=== PATIENT | female | born 2000 | race American Indian/Alaskan Native ===

== ENCOUNTER 2018-09-09 17:11 | Outpatient (CLI) | payer MEDICAID ==
[2018-09-09 17:38] VITALS: BP 126/82
[2018-09-09] MEDS ORDERED: LACTATED RINGERS 500 ML IV ONE (18:20)
--- NOTE | 2018-09-09 19:34 | Ultrasound Report ---
FINAL REPORT EXAM: US OB BPP WO NON-STRESS HISTORY: BPP, JONATHAN TECHNIQUE: Ultrasound biophysical profile PRIORS: None. FINDINGS: Single live intrauterine gestation is present with heart rate of 137 beats per minute Biophysical profile was performed respiratory motion 2 Body movement 2 tone 2 Amniotic fluid volume 2 Total 06/29 Impression Normal biophysical profile 06/29
--- NOTE | 2018-09-09 19:39 | Ultrasound Report ---
FINAL REPORT EXAM: US OB LIMITED HISTORY: BPP, JONATHAN TECHNIQUE: Ultrasound obstetrical limited PRIORS: None. FINDINGS: Single live intrauterine gestation present in cephalic presentation. cardiac activity present with heart rate of 137 beats per minute Amniotic fluid index 12.0 centimeters The placenta is posterior and fundal and grade 0 cardiac activity present with heart rate of 137 beats per minute IMPRESSION: Single intrauterine gestation in cephalic presentation
== END 2018-09-09 19:40 | disposition home or self-care (01) ==
LOC: TRG 17:11
PROVIDERS: ATTEND Obstetrics & Gynecology
DX: O47.02 False labor before 37 completed weeks of gestation, second trimester (principal); Z3A.27 27 weeks gestation of pregnancy; Z87.891 Personal history of nicotine dependence
CPT/HCPCS: 59025; 76815; 76819

== ENCOUNTER 2018-12-04 09:41 | Outpatient (CLI) | payer MEDICAID | END 2018-12-04 12:18 | disposition home or self-care (01) | LOC: TRG 09:41 | CPT/HCPCS: 59025 ==

== ENCOUNTER 2018-12-05 03:55 | Inpatient (IN) | payer MEDICAID ==
[2018-12-05] MEDS ORDERED: NITRATEST PAPER MC ONE (03:57)
--- NOTE | 2018-12-05 04:18 | History and Physical Report ---
History of Present Illness Date of examination: 12/05/18 Date of admission: 12/05/2018 Chief complaint: my water broke History of present illness: Pt c/o ROM at 0300 with light yellow color noted. Pt confirmed SROM with servicing manager. While in triage pt noted to have elevated BP. States she is just nervous. PIH labs done and will start magnesiums as blood pressures were in severe range. 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 of genital herpes: no Rash, Viral, or Febrile illness since last LMP? no Varicella/Chicken Pox Status: Previous Disease Genetic History Congenital Heart Defect: Mom: no Dad: no Lindsey Disease: Mom: no Dad: no Thalassemia Mom: no Dad: no Neural Tube Defect Mom: no Dad: no Down's Syndrome Mom: no Dad: no Scott-Sachs Mom: no Dad: no Sickle Cell Disease/Trait Mom: no Dad: no Hemophilia Mom: no Dad: no Muscular Dystrophy Mom: no Dad: no Cystic Fibrosis Mom: no Dad: no Jh Chorea Mom: no Dad: no Mental Retardation Mom: no Dad: no Fragile X Mom: no Dad: no Other Genetic/Chromosomal Disorder Mom: no Dad: no Child w/other defect Mom: no Dad: no Enviromental Exposures Xray Exposure: no Medication, drug, or alcohol use since LMP: no Chemical/Other Exposure: no Exposure to Cat Liter: no Hx of Parvovirus (Fifth Disease): no Occupational Exposure to Children: none Active Medications (reviewed today): GUMMIES () Current Allergies (reviewed today): AMOXICILLIN (AMOXICILLIN CAPS) (Critical) Past History - Obstetrical History Expected Date of Delivery: 12/06/18 Actual Gestation: 39 Week(s) 6 Day(s) : 1 Medications and Allergies Allergies Allergy/AdvReac Type Severity Reaction Status Date / Time amoxicillin Allergy Hives Verified 09/09/18 18:18 Home Medications Medication Instructions Recorded Confirmed Last Taken Type Pnv No.103/Folic/Om3s/Fish Oil 1 each PO QDAY 09/09/18 12/05/18 2 Months Ago History [ Gummies] ~10/05/18 - Vital Signs Vital signs: Vital Signs Pulse BP Pulse Ox 91 H 131/90 97 12/05/18 04:05 12/05/18 04:05 12/05/18 04:05 Temp Pulse Resp BP Pulse Ox 97.6 F 94 H 18 148/99 97 12/05/18 04:09 12/05/18 04:15 12/05/18 04:09 12/05/18 04:08 12/05/18 04:15 - Physical Exam Abdomen: Positive: normal appearance, soft, normal bowel sounds. Negative: distention, tenderness, guarding Genitourinary (Female): Positive: normal external genitalia, normal perenium Vagina: Positive: normal moisture Uterus: Positive: normal size - Obstetrical FHR: category 2 (decreased variability) Results All other labs normal. Assessment and Plan - Patient Problems (1) SROM (spontaneous rupture of membranes) Current Visit: Yes Status: Acute Plan to address problem: -admit -latent labor -augment with pitocin -GBS Negative -anticipate (2) 39 weeks gestation of Current Visit: Yes Status: Acute (3) Meconium in amniotic fluid Current Visit: Yes Status: Acute (4) Elevated blood pressure affecting in third trimester, antepartum Current Visit: Yes Status: Acute Plan to address problem: -start MgSO4 -PIH labs drawn
[2018-12-05] MEDS ORDERED: BRETHINE SUB-Q PRN (04:19)
[2018-12-05] MEDS ORDERED: XYLOCAINE 2% INFILTRATI ONE (04:19)
[2018-12-05] MEDS ORDERED: BRETHINE IVP PRN (04:19)
[2018-12-05] MEDS ORDERED: SUBLIMAZE IV PRN (04:19)
[2018-12-05] MEDS ORDERED: MINERAL OIL PO PRN (04:19)
[2018-12-05] MEDS ORDERED: MAGNESIUM SULFATE 4GM/100ML 4 GM/100 ML BAG IV ONE (04:56)
[2018-12-05] MEDS ORDERED: PITOCin/NS 30 UNIT/500ML 30 UNITS/500 ML BAG IV SCH ×2 (05:00)
[2018-12-05] MEDS ORDERED: PITOCin/NS 20 UNIT/1000ML DRIP 20 UNITS/1,000 ML BAG IV SCH (05:00)
[2018-12-05 05:01] LABS: Hematocrit 36.1 % (30.3-42.9); Hemoglobin 11.9 gm/dl (10.1-14.3); Mean Corpuscular HGB Conc 33 % (30-34); Mean Corpuscular Volume 85 fl (79-97); Platelet Count 280 K/mm3 (140-440); Red Blood Count 4.25 M/mm3 (3.65-5.03); Red Cell Distribution Width 14.3 % (13.2-15.2)
[2018-12-05] MEDS: LACTATED RINGERS 1,000 ML IV SCH ×2 (05:10→05:30)
--- NOTE | 2018-12-05 05:35 | Progress Note ---
Assessment and Plan - Patient Problems (1) SROM (spontaneous rupture of membranes) Current Visit: Yes Status: Acute (2) 39 weeks gestation of Current Visit: Yes Status: Acute (3) Meconium in amniotic fluid Current Visit: Yes Status: Acute Plan to address problem: -internal monitors placed -pitocin ordered but pt having spontaneous contractions (4) Elevated blood pressure affecting in third trimester, antepartum Current Visit: Yes Status: Acute Plan to address problem: -start MgSO4 -PIH labs drawn Subjective - Subjective Date of service: 12/05/18 Principal diagnosis: 39.6 weeks active labor, SROM, Mec,Elevated blood pressures Interval history: Pt c/o contraction pain. Bolus nearly completed for epidural. ISE and IUPC placed w/o difficulty at this time. CAT I tracing noted now with internal monitors noted. Patient reports: new complaints, movement normal, contractions Objective - Vital Signs Vital Signs: Vital Signs - 12hr 12/05/18 12/05/18 12/05/18 04:05 04:08 04:09 Temperature 97.6 F Pulse Rate 91 H 90 Respiratory 18 Rate Blood Pressure 131/90 148/99 O2 Sat by Pulse 97 Oximetry 12/05/18 12/05/18 12/05/18 04:10 04:15 04:28 Temperature Pulse Rate 109 H 94 H 82 Respiratory Rate Blood Pressure 158/101 O2 Sat by Pulse 97 97 Oximetry 12/05/18 12/05/18 12/05/18 04:41 05:10 05:25 Temperature Pulse Rate 77 81 85 Respiratory Rate Blood Pressure 165/95 147/89 145/108 O2 Sat by Pulse Oximetry - Exam FHR: category 1 Cervical Dilatation: 5 Cervical Effacement Percentage: 80 station: 0 Uterine Contraction Pattern: Regular Uterine Tone Measurement Phase: Resting Uterine Contraction Intensity: Moderate Extremities: normal Deep Tendon Reflex Grade: Normal +2 - Labs Labs: Laboratory Results - last 24 hr 12/05/18 04:30 WBC 6.1 RBC 4.25 Hgb 11.9 Hct 36.1 MCV 85 MCH 28 MCHC 33 RDW 14.3 Plt Count 280
[2018-12-05] MEDS ORDERED: NARCAN 2 MG/2 ML IV PRN (06:21)
[2018-12-05] MEDS: MAGNESIUM SULFATE 40GM/1000ML 40 GM/1,000 ML BAG IV SCH (06:29)
[2018-12-05 06:43] LABS: Uric Acid 6.1 mg/dL (3.5-7.6)
[2018-12-05] MEDS: fentaNYL-BUPIV 2 MCG/ML-0.125% 200 MCG/100 ML BAG EPIDURAL SCH ×2 (07:24→15:00)
[2018-12-05 07:41] LABS: Bacteria,Urine 3+ /HPF (Negative); Bilirubin,Urine NEG (Negative); Blood,Urine SM (Negative); Color,Urine Amber (Yellow); Mucus,Urine FEW /HPF; Urobilinogen,Urine < 2.0 mg/dL (<2.0)
--- NOTE | 2018-12-05 08:45 | Progress Note ---
Assessment and Plan Magnesium and pitocin infusing. Patient resting comfortably in bed post-epidural placement. SVE deferred at this time as patient is SROM and was recently examined. Category [address] tracing noted[address] in [address]. Pitocin to be titrated to adequate MVUs. Mag levels ordered to start 4 hours post bolus completion, then Q6h. Continue current POC. Subjective - Subjective Date of service: 12/05/18 Principal diagnosis: 39.6 weeks active labor, SROM, Mec,Elevated blood pressures Patient reports: movement normal, contractions, no new complaints, no vaginal bleeding Objective - Vital Signs Vital Signs: Vital Signs - 12hr 12/05/18 12/05/18 12/05/18 04:05 04:08 04:09 Temperature 97.6 F Pulse Rate 91 H 90 Respiratory 18 Rate Blood Pressure 131/90 148/99 O2 Sat by Pulse 97 Oximetry 12/05/18 12/05/18 12/05/18 04:10 04:15 04:28 Temperature Pulse Rate 109 H 94 H 82 Respiratory Rate Blood Pressure 158/101 O2 Sat by Pulse 97 97 Oximetry 12/05/18 12/05/18 12/05/18 04:41 05:10 05:25 Temperature Pulse Rate 77 81 85 Respiratory Rate Blood Pressure 165/95 147/89 145/108 O2 Sat by Pulse Oximetry 12/05/18 12/05/18 12/05/18 05:40 05:43 05:48 Temperature Pulse Rate 73 73 73 Respiratory Rate Blood Pressure 128/71 O2 Sat by Pulse 98 98 Oximetry 12/05/18 12/05/18 12/05/18 05:53 05:55 05:57 Temperature Pulse Rate 87 76 88 Respiratory Rate Blood Pressure 150/93 136/78 O2 Sat by Pulse 98 Oximetry 12/05/18 12/05/18 12/05/18 05:58 06:00 06:02 Temperature Pulse Rate 79 80 86 Respiratory Rate Blood Pressure 140/82 143/86 142/91 O2 Sat by Pulse 98 Oximetry 12/05/18 12/05/18 12/05/18 06:03 06:04 06:06 Temperature Pulse Rate 92 H 90 95 H Respiratory Rate Blood Pressure 131/86 126/81 O2 Sat by Pulse 99 Oximetry 12/05/18 12/05/18 12/05/18 06:08 06:09 06:11 Temperature Pulse Rate 88 84 98 H Respiratory Rate Blood Pressure 133/77 126/74 O2 Sat by Pulse 98 Oximetry 12/05/18 12/05/18 12/05/18 06:12 06:13 06:14 Temperature Pulse Rate 85 85 98 H Respiratory Rate Blood Pressure 130/80 134/85 O2 Sat by Pulse 98 Oximetry 12/05/18 12/05/18 12/05/18 06:17 06:18 06:19 Temperature Pulse Rate 82 93 H 93 H Respiratory Rate Blood Pressure 139/93 143/97 O2 Sat by Pulse 97 Oximetry 12/05/18 12/05/18 12/05/18 06:21 06:23 06:25 Temperature Pulse Rate 96 H 92 H 83 Respiratory Rate Blood Pressure 137/78 144/64 120/63 O2 Sat by Pulse 97 Oximetry 12/05/18 12/05/18 12/05/18 06:27 06:28 06:31 Temperature Pulse Rate 90 88 89 Respiratory Rate Blood Pressure 135/85 131/88 138/79 O2 Sat by Pulse 96 Oximetry 12/05/18 12/05/18 12/05/18 06:32 06:33 06:34 Temperature Pulse Rate 89 96 H 77 Respiratory Rate Blood Pressure 140/77 142/78 O2 Sat by Pulse 98 Oximetry 12/05/18 12/05/18 12/05/18 06:38 06:43 06:48 Temperature Pulse Rate 98 H 98 H 86 Respiratory Rate Blood Pressure O2 Sat by Pulse 98 98 99 Oximetry 12/05/18 12/05/18 12/05/18 06:51 06:53 06:58 Temperature Pulse Rate 79 74 78 Respiratory Rate Blood Pressure 139/88 O2 Sat by Pulse 99 94 Oximetry 12/05/18 12/05/18 12/05/18 07:03 07:07 07:08 Temperature Pulse Rate 75 74 78 Respiratory Rate Blood Pressure 156/91 O2 Sat by Pulse 99 98 Oximetry 12/05/18 12/05/18 12/05/18 07:13 07:18 07:21 Temperature Pulse Rate 89 75 88 Respiratory Rate Blood Pressure 142/86 O2 Sat by Pulse 98 98 Oximetry 12/05/18 12/05/18 12/05/18 07:23 07:28 07:33 Temperature Pulse Rate 81 74 81 Respiratory Rate Blood Pressure O2 Sat by Pulse 98 96 99 Oximetry 12/05/18 12/05/18 12/05/18 07:36 07:38 07:43 Temperature Pulse Rate 77 86 81 Respiratory Rate Blood Pressure 136/85 O2 Sat by Pulse 99 98 Oximetry 12/05/18 12/05/18 12/05/18 07:45 07:48 07:52 Temperature 98.0 F Pulse Rate 75 83 Respiratory Rate Blood Pressure 141/86 O2 Sat by Pulse 98 Oximetry 12/05/18 12/05/18 12/05/18 07:53 07:58 08:03 Temperature Pulse Rate 82 74 76 Respiratory Rate Blood Pressure O2 Sat by Pulse 98 98 98 Oximetry 12/05/18 12/05/18 12/05/18 08:06 08:08 08:13 Temperature Pulse Rate 75 71 72 Respiratory Rate Blood Pressure 134/80 O2 Sat by Pulse 99 98 Oximetry 12/05/18 12/05/18 12/05/18 08:18 08:22 08:23 Temperature Pulse Rate 71 75 77 Respiratory Rate Blood Pressure 129/76 O2 Sat by Pulse 98 98 Oximetry 12/05/18 12/05/18 12/05/18 08:28 08:33 08:38 Temperature Pulse Rate 73 86 77 Respiratory Rate Blood Pressure 115/63 O2 Sat by Pulse 99 97 98 Oximetry - Exam Breasts: normal Cardiovascular: Regular rate Lungs: Clear to auscultation Abdomen: Present: normal appearance, soft, normal bowel sounds Vulva: both: normal Uterus: Present: normal FHR: auscultation normal, category 1 Uterine Contraction Monitor Mode: External Uterine Contraction Pattern: Regular Extremities: normal - Labs Labs: Abnormal Labs 12/05/18 12/05/18 05:13 Unknown Lactate Dehydrogenase 219 H Urine WBC (Auto) 17.0 H Laboratory Results - last 24 hr 12/05/18 12/05/18 12/05/18 04:30 04:30 05:13 WBC 6.1 RBC 4.25 Hgb 11.9 Hct 36.1 MCV 85 MCH 28 MCHC 33 RDW 14.3 Plt Count 280 Uric Acid AST ALT Lactate Dehydrogenase Urine Color [place] Urine Turbidity Cloudy Urine pH 7.0 Ur Specific [place] 1.004 Urine Protein 100 mg/dl Urine Glucose (UA) Neg Urine Ketones Neg Urine Blood Sm Urine Nitrite Neg Urine Bilirubin Neg Urine Urobilinogen < 2.0 Ur Leukocyte Esterase Neg Urine WBC (Auto) 17.0 H Urine RBC (Auto) 50.0 U Epithel Cells (Auto) 12.0 Urine Bacteria (Auto) 3+ Urine Mucus Few Blood Type B POSITIVE Antibody Screen Negative 12/05/18 Unknown WBC RBC Hgb Hct MCV MCH MCHC RDW Plt Count Uric Acid 6.1 AST 30 ALT 10 Lactate Dehydrogenase 219 H Urine Color Urine Turbidity Urine pH Ur Specific [place] Urine Protein Urine Glucose (UA) Urine Ketones Urine Blood Urine Nitrite Urine Bilirubin Urine Urobilinogen Ur Leukocyte Esterase Urine WBC (Auto) Urine RBC (Auto) U Epithel Cells (Auto) Urine Bacteria (Auto) Urine Mucus Blood Type Antibody Screen
[2018-12-05] MEDS ORDERED: XYLOCAINE 2%/ EPI 1:200,000 INFILTRATI ONE (14:32)
[2018-12-05] MEDS ORDERED: CYTOTEC PR ONE (17:26)
[2018-12-05] MEDS ORDERED: LANSINOH TP PRN (17:49)
[2018-12-05] MEDS ORDERED: TYLENOL PO PRN (17:49)
[2018-12-05] MEDS ORDERED: PHENERGAN PR PRN (17:49)
[2018-12-05] MEDS ORDERED: MILK OF MAGNESIA PO PRN (17:49)
[2018-12-05] MEDS ORDERED: ZOFRAN IV PRN (17:49)
[2018-12-05] MEDS ORDERED: TUCKS PAD TP PRN (17:49)
[2018-12-05] MEDS ORDERED: BENADRYL PO PRN (17:49)
[2018-12-05] MEDS ORDERED: PHENERGAN PO PRN (17:49)
[2018-12-05] MEDS ORDERED: DULCOLAX PR PRN (17:49)
[2018-12-05] MEDS ORDERED: SODIUM CHLORIDE FLUSH SYRINGE 10 ML IV NR (18:00)
--- NOTE | 2018-12-05 18:29 | Procedure Note ---
OB Delivery Note - Delivery Date of Delivery: 12/05/18 [employer]er: SOPHIA NOE (with Fransisco Cantor CNM) Estimated blood loss: other (700) - Vaginal Delivery position: OA Intrapartum events: meconium, hemorrhage, other(please specify) (htn in 3rd trimester of ) Delivery induction: none Delivery augmentation: pitocin Delivery monitor: external FHT, internal uterine Route of delivery: Delivery placenta: spontaneous Delivery cord: other Episiotomy: midline Delivery repair: vicryl Anesthesia: epidural Delivery comments: of viable male over 2nd degree episiotomy cut for decreased heart tones. Large bundle of umbilical cord noted with presentation of vertex. placed on mothers abdomen. Cord clamped and cut, taken to warmer to awaiting NICU team present in room for meconium. Placenta delivered complete and intact, 3VC, to go to pathology. Uterus boggy, firms with massage, with clots noted. Uterine exploration yields more small clots. Pitocin to IV. Perineal repair done by LUIGI Ribera. 1000 cytotec placed rectally. Final uterine sweep done with firm uterus noted after. Patient remains on magnesium x24 hours post delivery. Baumann catheter to be replaced by RN. apgars 7/8, weight 8#2. Mother and infant in LDR in stable condition. - A at 1 minute: 7 at 5 minutes: 8 Gender: Male (8#2)
[2018-12-05] MEDS: IBUPROFEN PO SCH ×2 (20:11→23:50)
[2018-12-05] MEDS: NORCO 5/325 PO PRN (21:34)
[2018-12-05] MEDS ORDERED: LACTATED RINGERS 1,000 ML ONE (23:11)
[2018-12-06] MEDS: MAGNESIUM SULFATE 40GM/1000ML 40 GM/1,000 ML BAG IV SCH (00:58)
[2018-12-06] MEDS: NORCO 5/325 PO PRN ×2 (06:39→12:44)
[2018-12-06] MEDS: IBUPROFEN PO SCH ×3 (06:41→18:32)
[2018-12-06 06:53] LABS: Bilirubin,Urine NEG (Negative); Blood,Urine SM (Negative); Color,Urine Straw (Yellow); Hyaline Casts,Urine 1 /LPF; Protein,Urine <15 mg/dL mg/dL (Negative); Urobilinogen,Urine < 2.0 mg/dL (<2.0)
--- NOTE | 2018-12-06 07:15 | Progress Note ---
Assessment and Plan patient resting, denies SCHULER, visual changes or epigastric pain. c/o perineal pain from laceration/epis. Ordered dermoplast and recommended changing position. Labs ordered for this morning to include a post delivery H&H. VSSAF. Lochia scant, Mag infusing @ 1gm/hr. urine output adequate. last mag level 6.0. plan to continue care on labor and delivery while mag infusing x24h post delivery then transfer to [facility]. Will continue to monitor. - Patient Problems (1) Gestational HTN Current Visit: Yes Status: Acute Qualifiers: Trimester: third trimester Qualified Code(s): O13.3 - Gestational [-induced] hypertension without significant proteinuria, third trimester (2) Normal spontaneous vaginal delivery Current Visit: Yes Status: Acute Subjective - Subjective Date of service: 12/06/18 Principal diagnosis: day #1, gestational htn on mag sulfate Patient reports: appetite normal, voiding normally, pain well controlled, ambulating normally, no dizzy ambulation, no nauseated : doing well Objective - Vital Signs Latest vital signs: Vital Signs Temp Pulse Resp BP Pulse Ox 12/06/18 07:08 73 99 12/06/18 07:04 78 122/86 12/06/18 07:03 86 99 12/06/18 06:58 83 99 12/06/18 06:53 76 98 12/06/18 06:48 78 100 12/06/18 06:43 86 98 12/06/18 06:38 81 99 12/06/18 06:33 92 H 98 12/06/18 06:28 98 H 100 12/06/18 06:23 80 98 12/06/18 06:18 90 99 12/06/18 06:13 77 98 12/06/18 06:08 79 99 12/06/18 06:04 75 128/77 12/06/18 06:03 76 99 12/06/18 05:58 80 99 12/06/18 05:53 84 99 12/06/18 05:48 83 100 12/06/18 05:43 83 99 12/06/18 05:38 89 100 12/06/18 05:33 84 98 12/06/18 05:28 94 H 100 12/06/18 05:23 86 98 12/06/18 05:18 74 98 12/06/18 05:13 71 100 12/06/18 05:08 87 100 12/06/18 05:04 96 H 129/78 12/06/18 05:03 88 97 12/06/18 04:58 78 98 12/06/18 04:53 75 98 12/06/18 04:48 79 97 12/06/18 04:43 75 98 12/06/18 04:38 84 98 12/06/18 04:33 84 97 12/06/18 04:28 82 97 12/06/18 04:23 79 97 12/06/18 04:18 82 97 12/06/18 04:13 81 96 12/06/18 04:08 79 97 12/06/18 04:04 85 127/78 94 12/06/18 04:03 75 97 12/06/18 03:58 81 97 12/06/18 03:53 85 97 12/06/18 03:48 84 97 12/06/18 03:43 90 98 12/06/18 03:38 98 H 98 12/06/18 03:33 94 H 97 12/06/18 03:28 103 H 98 12/06/18 03:23 81 99 12/06/18 03:18 78 99 12/06/18 03:13 93 H 100 12/06/18 03:08 94 H 99 12/06/18 03:04 87 128/77 12/06/18 03:03 82 98 12/06/18 02:58 82 98 12/06/18 02:53 89 99 12/06/18 02:48 85 98 12/06/18 02:43 84 98 12/06/18 02:38 88 98 12/06/18 02:33 82 98 12/06/18 02:28 85 98 12/06/18 02:23 93 H 99 12/06/18 02:18 77 98 12/06/18 02:13 76 98 12/06/18 02:08 78 95 12/06/18 02:04 77 128/70 94 12/06/18 02:03 77 98 12/06/18 01:58 86 97 12/06/18 01:53 84 97 12/06/18 01:48 82 97 12/06/18 01:43 82 97 12/06/18 01:38 85 97 12/06/18 01:33 86 97 12/06/18 01:28 81 97 12/06/18 01:23 85 97 12/06/18 01:18 86 97 12/06/18 01:13 84 97 12/06/18 01:08 90 97 12/06/18 01:03 85 125/64 98 12/06/18 00:58 85 98 12/06/18 00:53 82 98 12/06/18 00:48 80 97 12/06/18 00:43 86 98 12/06/18 00:38 97 H 98 12/06/18 00:33 83 98 12/06/18 00:28 97 H 98 12/06/18 00:23 99 H 98 12/06/18 00:18 80 98 12/06/18 00:13 89 96 12/06/18 00:08 83 96 12/06/18 00:06 79 122/62 91 12/06/18 00:05 97.6 F 18 12/06/18 00:03 86 97 12/05/18 23:58 84 97 12/05/18 23:53 80 96 12/05/18 23:48 82 97 12/05/18 23:43 80 98 12/05/18 23:38 79 97 12/05/18 23:36 75 148/84 12/05/18 23:33 95 H 97 12/05/18 23:28 94 H 96 12/05/18 23:23 99 H 97 12/05/18 23:18 89 96 12/05/18 23:14 91 H 96 12/05/18 23:08 98 H 96 12/05/18 23:06 91 H 128/70 94 12/05/18 23:03 96 H 98 12/05/18 22:58 97 H 98 12/05/18 22:53 98 H 98 12/05/18 22:48 95 H 97 12/05/18 22:43 99 H 97 12/05/18 22:38 99 H 97 12/05/18 22:36 97 H 138/69 94 12/05/18 22:33 107 H 98 12/05/18 22:28 106 H 98 12/05/18 22:23 110 H 97 12/05/18 22:18 101 H 99 12/05/18 22:13 103 H 98 12/05/18 22:08 102 H 98 12/05/18 22:06 99 H 121/65 92 12/05/18 22:03 104 H 97 12/05/18 21:58 113 H 98 12/05/18 21:53 116 H 97 12/05/18 21:48 102 H 98 12/05/18 21:43 100 H 98 12/05/18 21:38 100 H 99 12/05/18 21:36 98 H 143/82 12/05/18 21:33 105 H 97 12/05/18 21:28 104 H 97 12/05/18 21:23 106 H 97 12/05/18 21:18 104 H 99 12/05/18 21:13 108 H 98 12/05/18 21:08 105 H 98 12/05/18 21:06 115 H 145/92 12/05/18 21:03 106 H 98 12/05/18 20:58 101 H 98 12/05/18 20:53 105 H 98 12/05/18 20:48 97 H 99 12/05/18 20:43 96 H 99 12/05/18 20:38 101 H 99 12/05/18 20:36 96 H 156/89 12/05/18 20:33 100 H 100 12/05/18 20:28 106 H 99 12/05/18 20:23 97 H 99 12/05/18 20:18 96 H 99 12/05/18 20:13 109 H 98 12/05/18 20:08 100 H 100 12/05/18 20:03 102 H 99 12/05/18 19:58 101 H 99 12/05/18 19:51 98.2 F 102 H 18 142/85 100 12/05/18 19:36 96 H 143/82 12/05/18 19:21 93 H 140/83 12/05/18 19:06 99 H 145/91 12/05/18 18:51 92 H 141/78 12/05/18 18:36 99 H 147/94 12/05/18 18:21 94 H 146/79 12/05/18 18:06 101 H 138/88 12/05/18 17:51 113 H 150/79 12/05/18 17:36 101 H 142/84 12/05/18 17:23 111 H 141/70 12/05/18 17:20 120 H 150/90 12/05/18 17:07 150 H 150/77 12/05/18 16:52 129 H 138/86 12/05/18 16:37 111 H 115/62 12/05/18 16:23 118 H 118/77 12/05/18 16:21 129 H 125/77 12/05/18 16:06 121 H 114/65 12/05/18 15:51 116 H 117/71 12/05/18 15:36 117 H 110/66 12/05/18 15:21 117 H 109/68 12/05/18 15:06 123 H 92/51 12/05/18 14:51 121 H 106/55 12/05/18 14:38 97.9 F 12/05/18 14:37 96 H 136/85 12/05/18 14:21 102 H 148/76 12/05/18 14:07 104 H 153/78 12/05/18 13:51 98 H 153/92 12/05/18 13:36 108 H 145/96 12/05/18 13:28 108 H 96 12/05/18 13:23 109 H 98 12/05/18 13:22 107 H 145/95 12/05/18 13:18 109 H 97 12/05/18 13:13 125 H 97 12/05/18 13:08 109 H 94 12/05/18 13:06 110 H 135/85 12/05/18 13:04 108 H 94 12/05/18 13:03 111 H 96 12/05/18 12:58 123 H 97 12/05/18 12:53 121 H 97 12/05/18 12:51 117 H 140/88 12/05/18 12:48 129 H 97 12/05/18 12:43 122 H 96 12/05/18 12:38 122 H 97 12/05/18 12:37 112 H 131/85 12/05/18 12:33 108 H 99 12/05/18 12:28 120 H 100 12/05/18 12:23 123 H 97 12/05/18 12:21 120 H 124/80 12/05/18 12:18 120 H 96 12/05/18 12:13 120 H 95 12/05/18 12:08 125 H 97 12/05/18 12:06 121 H 120/76 12/05/18 12:03 129 H 97 12/05/18 11:58 135 H 97 12/05/18 11:53 141 H 97 12/05/18 11:52 136 H 116/70 12/05/18 11:48 137 H 96 12/05/18 11:43 117 H 97 12/05/18 11:38 127 H 99/61 98 12/05/18 11:33 128 H 97 12/05/18 11:28 122 H 97 12/05/18 11:23 125 H 97 12/05/18 11:22 126 H 115/61 12/05/18 11:18 125 H 97 12/05/18 11:13 140 H 97 12/05/18 11:08 138 H 97 12/05/18 11:06 139 H 118/57 12/05/18 11:03 134 H 98 12/05/18 10:58 127 H 99 12/05/18 10:53 134 H 98 12/05/18 10:52 137 H 125/79 12/05/18 10:48 132 H 98 12/05/18 10:43 98 H 100 12/05/18 10:38 120 H 141/88 99 12/05/18 10:33 106 H 99 12/05/18 10:32 109 H 169/95 12/05/18 10:28 99 H 99 12/05/18 10:23 98 H 99 12/05/18 10:22 104 H 168/90 12/05/18 10:18 97 H 99 12/05/18 10:13 91 H 98 12/05/18 10:08 92 H 98 12/05/18 10:06 90 140/87 12/05/18 10:03 91 H 98 12/05/18 09:58 89 97 12/05/18 09:53 89 136/84 98 12/05/18 09:48 88 98 12/05/18 09:43 80 98 12/05/18 09:38 81 98 12/05/18 09:36 85 150/95 12/05/18 09:33 80 98 12/05/18 09:28 80 98 12/05/18 09:23 82 98 12/05/18 09:21 80 141/92 12/05/18 09:18 83 99 12/05/18 09:13 82 98 12/05/18 09:08 82 98 12/05/18 09:07 78 138/88 12/05/18 09:03 88 98 12/05/18 08:58 81 98 12/05/18 08:53 80 98 12/05/18 08:52 91 H 128/77 12/05/18 08:48 84 98 12/05/18 08:43 75 97 12/05/18 08:38 77 115/63 98 12/05/18 08:33 86 97 12/05/18 08:28 73 99 12/05/18 08:23 77 98 12/05/18 08:22 75 129/76 12/05/18 08:18 71 98 12/05/18 08:13 72 98 12/05/18 08:08 71 99 12/05/18 08:06 75 134/80 12/05/18 08:03 76 98 12/05/18 07:58 74 98 12/05/18 07:53 82 98 12/05/18 07:52 83 141/86 12/05/18 07:48 75 98 12/05/18 07:45 98.0 F 12/05/18 07:43 81 98 12/05/18 07:38 86 99 12/05/18 07:36 77 136/85 12/05/18 07:33 81 99 12/05/18 07:28 74 96 12/05/18 07:23 81 98 12/05/18 07:21 88 142/86 12/05/18 07:18 75 98 Intake and Output 12/05/18 12/05/18 12/06/18 15:59 23:59 07:59 Intake Total 18.767 50 924.167 Output Total 650 Balance 18.767 -600 924.167 Intake: IV 18.767 50 924.167 MAGNESIUM SULFATE 40GM/ 924.167 1000ML 40 gm In 1,000 ml @ 2 GM/HR 50 mls/hr IV DIRECT TAZ Rx#:[id number] PITOCin/NS 30 UNIT/500ML 18.767 50 30 units In 500 ml @ 2 mls/hr IV TITR TAZ Rx#: [id number] Output: Urine 650 Indwelling Catheter 650 Other: Total, Output Amount 650 Estimated Blood Loss 500 - Exam Breasts: Present: normal Cardiovascular: Present: Regular rate Lungs: Present: Clear to auscultation, Normal air movement Abdomen: Present: normal appearance, soft Vulva: both: laceration/episiotomy Uterus: Present: normal, firm, fundal height at umbilicus Extremities: Present: normal - Labs Labs: Abnormal lab results 12/05/18 12/05/18 12/05/18 Range/Units 05:13 13:03 18:17 Magnesium 5.80 H 6.00 H (1.7-2.3) mg/dL Urine WBC (Auto) 17.0 H (0.0-6.0) /HPF 12/06/18 12/06/18 Range/Units 00:17 05:38 Magnesium 5.70 H 6.00 H (1.7-2.3) mg/dL Urine WBC (Auto) (0.0-6.0) /HPF
[2018-12-06 07:28] LABS: Hematocrit 26.6 % (30.3-42.9); Hemoglobin 8.9 gm/dl (10.1-14.3); Mean Corpuscular HGB Conc 33 % (30-34); Mean Corpuscular Volume 85 fl (79-97); Platelet Count 268 K/mm3 (140-440); Red Blood Count 3.15 M/mm3 (3.65-5.03); Red Cell Distribution Width 14.4 % (13.2-15.2)
[2018-12-06 07:50] LABS: Alanine Aminotransferase 8 units/L (7-56)
[2018-12-06] MEDS ORDERED: DERMOPLAST TP PRN (08:00)
[2018-12-06] MEDS ORDERED: LACTATED RINGERS 1,000 ML ONE (10:31)
[2018-12-06] MEDS ORDERED: LACTATED RINGERS 1,000 ML IV SCH (11:00)
[2018-12-07] MEDS: IBUPROFEN PO SCH ×4 (00:13→17:15)
[2018-12-07] MEDS: NORCO 5/325 PO PRN (00:15)
[2018-12-07] MEDS ORDERED: BOOSTRIX IM ONE (06:00)
--- NOTE | 2018-12-07 07:07 | Progress Note ---
Assessment and Plan Pt rresting w/o complaint BP 150-140/70 Consulted with . Pt made aware we will start Labetalol 200mg po BID. FF below umb Lochia scant Perineum slight swelling intact H&H stable No s/sx of anemia Doing well s/p vag delivery Starting po antihypertensive today P: continue pathway Labetalol 200mg po BID Plan d/c tomorrow if stable. DX RX written for pt: EMLA, Motrin, Labetalol. Subjective - Subjective Date of service: 12/07/18 (will start Labetalol) Principal diagnosis: day #2, gestational htn Patient reports: appetite normal, voiding normally, pain well controlled, ambulating normally [place]: doing well Objective - Vital Signs Latest vital signs: Vital Signs Temp Pulse Resp BP BP Pulse Ox 12/07/18 04:05 98.0 F 72 20 143/73 12/07/18 00:00 98.2 F 74 20 145/73 12/06/18 20:00 98.2 F 75 20 155/76 12/06/18 17:00 72 122/76 12/06/18 16:57 76 99 12/06/18 16:52 76 98 12/06/18 16:47 72 99 12/06/18 16:42 79 98 12/06/18 16:30 70 99 12/06/18 16:25 71 100 12/06/18 16:20 67 100 12/06/18 16:15 65 100 12/06/18 16:10 65 100 12/06/18 16:05 73 99 12/06/18 16:04 98.1 F 69 20 140/86 12/06/18 16:00 72 100 12/06/18 15:55 73 99 12/06/18 15:50 71 99 12/06/18 15:45 76 99 12/06/18 15:40 73 99 12/06/18 15:35 76 98 12/06/18 15:30 92 H 98 12/06/18 15:25 69 98 12/06/18 15:20 90 98 12/06/18 15:15 74 98 12/06/18 15:10 73 99 12/06/18 15:05 79 99 12/06/18 15:04 75 130/63 12/06/18 15:00 79 98 12/06/18 14:55 84 99 12/06/18 14:50 94 H 99 12/06/18 14:45 82 98 12/06/18 14:40 80 99 12/06/18 14:35 81 98 12/06/18 14:30 80 99 12/06/18 14:25 83 99 12/06/18 14:20 82 99 12/06/18 14:15 91 H 98 12/06/18 14:10 88 99 12/06/18 14:05 81 99 12/06/18 14:04 85 128/81 12/06/18 14:00 81 98 12/06/18 13:55 89 99 12/06/18 13:50 88 100 12/06/18 13:45 83 99 12/06/18 13:40 83 99 12/06/18 13:35 86 98 12/06/18 13:30 87 99 12/06/18 13:25 90 98 12/06/18 13:20 90 100 12/06/18 13:15 85 99 12/06/18 13:10 83 99 12/06/18 13:05 78 100 12/06/18 13:04 84 129/79 12/06/18 13:00 84 100 12/06/18 12:55 80 100 12/06/18 12:50 80 100 12/06/18 12:45 78 100 12/06/18 12:40 88 99 12/06/18 12:35 88 100 12/06/18 12:30 84 98 12/06/18 12:25 85 99 12/06/18 12:20 81 99 12/06/18 12:15 82 99 12/06/18 12:10 88 99 12/06/18 12:05 90 99 12/06/18 12:04 98.7 F 84 20 135/92 12/06/18 12:00 83 99 12/06/18 11:55 81 99 12/06/18 11:50 91 H 100 12/06/18 11:45 85 99 12/06/18 11:40 90 100 12/06/18 11:35 83 98 12/06/18 11:30 82 100 12/06/18 11:25 91 H 97 12/06/18 11:20 84 98 12/06/18 11:15 88 97 01/15/19 10:50 88 98 12/06/18 10:45 98 H 98 12/06/18 10:38 86 98 12/06/18 10:33 91 H 98 12/06/18 10:28 78 97 12/06/18 10:23 77 97 12/06/18 10:18 87 98 12/06/18 10:13 81 97 12/06/18 10:08 91 H 98 12/06/18 10:04 83 120/72 12/06/18 10:03 85 98 12/06/18 09:58 83 98 12/06/18 09:53 90 99 12/06/18 09:48 92 H 98 12/06/18 09:43 82 99 12/06/18 09:38 72 98 12/06/18 09:33 75 98 12/06/18 09:28 83 98 12/06/18 09:23 74 98 12/06/18 09:18 99 H 98 12/06/18 09:13 77 98 12/06/18 09:08 70 99 12/06/18 09:04 92 H 126/89 12/06/18 09:03 89 98 12/06/18 08:58 75 99 12/06/18 08:53 72 99 12/06/18 08:48 81 97 12/06/18 08:43 79 98 12/06/18 08:38 76 99 12/06/18 08:33 86 98 12/06/18 08:28 80 98 12/06/18 08:23 82 99 12/06/18 08:18 78 97 12/06/18 08:13 80 99 12/06/18 08:08 73 98 12/06/18 08:04 98.1 F 81 20 120/68 12/06/18 08:03 76 99 12/06/18 07:58 71 97 12/06/18 07:53 74 97 12/06/18 07:48 73 97 12/06/18 07:43 79 97 12/06/18 07:41 77 94 12/06/18 07:38 86 97 12/06/18 07:33 90 97 12/06/18 07:28 81 97 12/06/18 07:23 73 97 12/06/18 07:18 77 98 12/06/18 07:13 78 100 12/06/18 07:08 73 99 12/06/18 07:04 78 122/86 12/06/18 07:03 86 99 Intake and Output 12/06/18 12/07/18 12/07/18 22:59 06:59 14:59 Intake Total 480 120 Output Total 3200 900 Balance -2720 -780 Intake: Oral 480 120 Output: Urine 3200 900 Indwelling Catheter 2000 Void 1200 900 Other: Total, Intake Amount 240 120 Total, Output Amount 600 600 # Voids Void 1 2 - Exam Breasts: Present: normal Cardiovascular: Present: Regular rate Lungs: Present: Clear to auscultation, Normal air movement Abdomen: Present: normal appearance, soft, normal bowel sounds Vulva: both: laceration/episiotomy (slight swelling intact) Uterus: Present: normal, firm, fundal height below umbilicus Extremities: Present: normal Deep Tendon Reflex Grade: Normal +2 Incision: Present: normal, dry, intact - Labs Labs: Abnormal lab results 12/06/18 12/06/18 12/06/18 Range/Units 07:15 07:15 13:18 WBC 14.7 H (4.5-11.0) K/mm3 RBC 3.15 L (3.65-5.03) M/mm3 Hgb 8.9 L D (10.1-14.3) gm/dl Hct 26.6 L D (30.3-42.9) % Creatinine 0.6 L (0.7-1.2) mg/dL Magnesium 4.60 H (1.7-2.3) mg/dL Lactate Dehydrogenase 284 H (91-180) units/L 12/07/18 Range/Units 00:15 WBC (4.5-11.0) K/mm3 RBC (3.65-5.03) M/mm3 Hgb (10.1-14.3) gm/dl Hct (30.3-42.9) % Creatinine (0.7-1.2) mg/dL Magnesium 3.10 H (1.7-2.3) mg/dL Lactate Dehydrogenase (91-180) units/L
[2018-12-07] MEDS: NORMODYNE PO SCH ×2 (09:05→22:00)
[2018-12-08] MEDS: NORCO 5/325 PO PRN ×2 (06:25→13:34)
[2018-12-08] MEDS: IBUPROFEN PO SCH (06:25)
[2018-12-08] MEDS: NORMODYNE PO SCH ×2 (06:38→13:34)
--- NOTE | 2018-12-08 07:36 | Discharge Summary ---
Providers - Providers Date of Admission: 12/05/18 04:45 Date of discharge: 12/08/18 (desires d/c home) Attending physician: WILLIE HA Primary care physician: WILLIE HA Hospitalization Reason for admission: Labor Condition: Good Pertinent studies: post delivery H&H 8.9/26.6 (asymptomatic, anemia from acute blood loss) Procedures: Hospital course: and course complicated by pre-e Disposition: DC-01 TO HOME OR SELFCARE - Discharge Diagnoses (1) Normal spontaneous vaginal delivery Status: Acute (2) Pre-eclampsia, mild Status: Acute Qualifiers: Trimester: third trimester Qualified Code(s): O14.03 - Mild to moderate pre-eclampsia, third trimester Core Measure Documentation - Palliative Care Palliative Care/ Comfort Measures: Not Applicable - Core Measures Any of the following diagnoses?: none Exam - Constitutional Vitals: Temp Pulse Resp BP Pulse Ox 98.4 F 80 18 132/88 99 12/08/18 06:35 12/08/18 06:38 12/08/18 06:35 12/08/18 06:38 12/07/18 16:38 General appearance: Present: no acute distress, well-nourished - EENT Eyes: Present: PERRL ENT: hearing intact, clear oral mucosa - Neck Neck: Present: supple, normal ROM - Respiratory Respiratory effort: normal Respiratory: bilateral: CTA - Cardiovascular Heart Sounds: Present: S1 & S2. Absent: rub, click - Extremities Extremities: pulses symmetrical, No edema Peripheral Pulses: within normal limits - Abdominal General gastrointestinal: Present: soft, non-tender, non-distended, normal bowel sounds Female genitourinary: Present: normal - Integumentary Integumentary: Present: clear, warm, dry - Musculoskeletal Musculoskeletal: gait normal, strength equal bilaterally - Psychiatric Psychiatric: appropriate mood/affect, intact judgment & insight - Neurologic Neurologic: CNII-XII intact, moves all extremities - Additional findings Additional findings: no SCHULER, visual changes, epigastric pain. Lochia scant, fund firm Plan Activity: no restrictions Diet: regular Follow up with: WILLIE HA MD [Primary Care Provider] - 7 Days (Congratulations! Please call [phone] to schedule a blood pressure check and your son's circumcision in 1 week. Bring EMLA cream to your son's appointment and await further teaching. Call for any questions or concerns.) Prescriptions: Ibuprofen [Motrin 800 MG tab] 800 mg PO TID PRN #30 tablet PRN Reason: Pain Labetalol [Normodyne TAB] 200 mg PO BID #60 tablet Lidocain2.5%/Prilocai2.5% [Emla] 5 gm TP PRN #1 tube
[2018-12-08 15:01] VITALS: BP 118/66
== END 2018-12-08 14:30 | disposition home or self-care (01) | DRG 774 ==
LOC: TRG 03:55 → LD 04:45 → OB 12-06 17:11
PROVIDERS: ADMIT Obstetrics & Gynecology; ATTEND Obstetrics & Gynecology
PROC: 10E0XZZ Delivery of Products of Conception, External Approach (ICD-10-PCS; principal; 2018-12-05)
PROC: 0W8NXZZ Division of Female Perineum, External Approach (ICD-10-PCS; 2018-12-05)
PROC: 3E0R3BZ Introduction of Anesthetic Agent into Spinal Canal, Percutaneous Approach (ICD-10-PCS; 2018-12-05)
PROC: 00HU33Z Insertion of Infusion Device into Spinal Canal, Percutaneous Approach (ICD-10-PCS; 2018-12-05)
PROC: 0HQ9XZZ Repair Perineum Skin, External Approach (ICD-10-PCS; 2018-12-05)
PROC: 10H07YZ Insertion of Other Device into Products of Conception, Via Natural or Artificial Opening (ICD-10-PCS; 2018-12-05)
DX: O14.04 Mild to moderate pre-eclampsia, complicating childbirth (principal); O77.0 Labor and delivery complicated by meconium in amniotic fluid; O13.4 Gestational [pregnancy-induced] hypertension without significant proteinuria, complicating childbirth; O70.9 Perineal laceration during delivery, unspecified; D62 Acute posthemorrhagic anemia; O99.02 Anemia complicating childbirth; Z82.49 Family history of ischemic heart disease and other diseases of the circulatory system; Z83.3 Family history of diabetes mellitus; Z3A.39 39 weeks gestation of pregnancy; Z37.0 Single live birth; Z80.1 Family history of malignant neoplasm of trachea, bronchus and lung; Z88.1 Allergy status to other antibiotic agents
CPT/HCPCS: 36415; 59025; 81001; 82565; 83615; 83735; 84450; 84460; 84550; 85027; 86592; 86850; 86900; 86901; 88307; 90471; 90715; G0378; J2590; J3010; J3475; J7120